=== PATIENT | female | born 1965 | race Caucasian/White ===

== ENCOUNTER 2021-01-11 17:54 | Emergency (ER) | payer OTHER ==
[~2021-01-11] VITALS: Ht 149.9 cm; Wt 49.9 kg
[~2021-01-11 17:54] MED LIST: AMBEREN; FLEXERIL PO; HYDROCODON-ACE1 EAC7 PO; NEXIUM40 MG PO; NORCO 5-325 TA1 EACH PO; VALIUM5 MG PO
[2021-01-11 18:36] LABS: ABSOLUTE NEUTROPHILS 3.6 thou/uL (1.4-8.2); BASOPHILS 0.6 % (0.0-2.0); EOSINOPHILS 4.8 % (0.0-3.0); HEMATOCRIT 36.6 % (37.0-47.0); HEMOGLOBIN 12.3 gm/dL (12.0-15.0); MCH 28.5 pg (26.0-34.0); MCHC 33.7 g/dL (28.0-37.0); MCV 84.7 fL (80.0-100.0); MONOCYTES 7.8 % (1.0-8.0); PLATELET COUNT 333 thou/uL (150-400); POLYS 57.8 % (36.0-66.0); RBC 4.32 mil/uL (4.20-5.00); RDW 13.4 % (10.5-14.5); WBC 6.3 thou/uL (4.0-11.0)
[2021-01-11 18:48] LABS: CALCIUM 9.3 mg/dL (8.5-10.1); CREATININE 1.1 mg/dL (0.6-1.0); POTASSIUM 4.3 mmol/L (3.5-5.1)
[2021-01-11] MEDS ORDERED: DOXYCYCLINE 10100 MG PO (18:51)
[2021-01-11 18:55] VITALS: BP 147/85
[2021-01-11] MEDS ORDERED: ONDANSETRON HCL4 M2 PO (18:55)
== END 2021-01-11 18:55 | disposition home or self-care (01) ==
LOC: ER 17:54
PROVIDERS: Nurse Practitioner
DX: L03.116 Cellulitis of left lower limb (principal); R42 Dizziness and giddiness; Z90.89 Acquired absence of other organs; Z90.711 Acquired absence of uterus with remaining cervical stump; Z88.5 Allergy status to narcotic agent